=== PATIENT | male | born 1950 | race Caucasian/White ===

== ENCOUNTER 2020-10-03 11:56 | Emergency (ER) | payer MEDICARE, SELFPAY ==
--- NOTE | 2020-10-03 12:31 | ED.GENADULT ---
HPI - General Adult General Chief complaint: Upper Respiratory Infection Stated complaint: upper respiratory infection Source: patient Mode of arrival: ambulatory Limitations: no limitations History of Present Illness HPI narrative: 69 y/o male. PMH includes: GERD, HLD, DM II. Presents to [facility] today with acute complaints of MANCERA, sore throat, and nasal congestion for past 72 hours. He reports exposure to son at home, whom had tested positive for Covid earlier in week. Denies weakness, lethargy. No fever, chills. No chest pain, dyspnea, edema. No abdominal pain, N/V/D. He is without additional acute complaints upon exam. Related Data Allergies Allergy/AdvReac Type Severity Reaction Status Date / Time No Known Allergies Allergy Verified 03/30/20 11:19 Review of Systems Review of Systems: Narrative: CONSTITUTIONAL: Denies fever, chills, sweats. EYES: Denies visual changes, redness, discharge. ENT: Positive congestion, sore throat. No otalgia. CARDIOVASCULAR: Denies chest pain, palpitations, edema. RESPIRATORY: Denies dyspnea, wheezing, cough GASTROINTESTINAL: Denies abdominal pain, nausea, vomiting, diarrhea. GENITOURINARY: Denies dysuria, hematuria, abnormal discharge SKIN: Denies rash or itching. MUSCULOSKELETAL: Denies acute back pain, joint pain, or myalgia. NEUROLOGIC: Denies numbness, or focal weakness. PSYCHIATRIC: Denies anxiety or depression. All systems reviewed & are unremarkable except as noted in HPI and below PMFSH Past Medical History Medical History Type 2 diabetes, controlled, with neuropathy Vitamin B12 deficiency (non anemic) Vitamin D deficiency, unspecified Family History Family History Father Family history of diabetes mellitus in first degree relative Other Diabetes mellitus Social History Social History Smoking status: Never smoker Second hand tobacco smoke exposure: No Alcohol intake: never Gender identity (if verbalized by the patient): Male Comments At time of signature, I agree with nursing past medical, surgical, social and family history. There is no relevant family history pertinent to the presenting complaint. Exam Narrative: Exam Narrative: GENERAL: This is a well-nourished, well-developed patient, in no apparent distress. HEAD: normocephalic, atraumatic. EYES: PERRL. Sclera clear/white. Vision is grossly intact. EARS: External ears normal, auditory canals clear and without drainage, TMs normal without perforation. Hearing grossly intact. NOSE: External nose normal. PND. THROAT: Mucous membranes moist. Posterior pharynx is erythematous, with a very small amount of exudate. No airway swelling or obstruction. NECK: Neck supple, non-tender without lymphadenopathy, masses or thyromegaly. CARDIOVASCULAR: Regular rate and rhythm without murmurs, gallops, or rubs. RESPIRATORY: Clear to auscultation. Breath sounds equal bilaterally. No wheezes, rales, or rhonchi. GASTROINTESTINAL: Abdomen soft, non-tender, nondistended. Bowel sounds are active. No hepato-splenomegaly, or palpable masses. No guarding. SKIN: warm, intact with no suspicious lesions or rash, good texture and turgor. NEURO: Alert, without acute neuro deficits. Course Course Emergency Course: -69 y/o male. PMH includes: GERD, HLD, DM II. Presents to [facility] today with acute complaints of MANCERA, sore throat, and nasal congestion for past 72 hours. He reports exposure to son at home, whom had tested positive for Covid earlier in week. Denies weakness, lethargy. No fever, chills. No chest pain, dyspnea, edema. No abdominal pain, N/V/D. -Covid 19, Influenza, and Strep swab. Proceed accordingly. Pt agrees. Vital Signs Vital signs: Vital Signs Temperature 36.9 C 10/03/20 12:36 Pulse Rate 91 10/03/20 12:36
[2020-10-03 12:36] VITALS: BP 110/74; PULSE 91; RESP 20; TEMP 36.9; O2SAT 97
== END 2020-10-03 12:50 | disposition home or self-care (01) ==
PROVIDERS: Emergency Provider Nurse Practitioner Adult Health; PCP Internal Medicine
DX: U07.1 COVID-19 (principal); K21.9 Gastro-esophageal reflux disease without esophagitis; E78.5 Hyperlipidemia, unspecified; E11.9 Type 2 diabetes mellitus without complications; E53.8 Deficiency of other specified B group vitamins; E55.9 Vitamin D deficiency, unspecified
CPT/HCPCS: 87081; 87426; 87804; 87880; 99213; C9803; G0463

== ENCOUNTER 2021-02-09 14:13 | Outpatient (CLI) | payer MEDICARE, SELFPAY ==
--- NOTE | ~2021-02-09 | MR_ITS ---
EXAMINATION: MR lumbar spine wo con DATE: 02/09/2021 15:33 INDICATION: Neuropathy. Chronic low back pain. Bilateral sciatica. TECHNIQUE: Magnetic resonance imaging (MRI) of the lumbar spine was performed without intravenous con trast. Sequences included sagittal T2-weighted FSE, sagittal T2-weighted FS FSE, sagittal T1-weighted FSE, and axial T2-weighted FSE. COMPARISON: Lumbar spine MRI 11/11/2015 FINDINGS: There is 11 degrees levoscoliosis of lumbar spine. There is mild chronic anterior wedging o f T12 and L1 vertebral bodies. There is 3 mm retrolisthesis of L1 on L2. There is moderately decrease d disc height at L1-L2 and L4-L5 and severely decreased disc height at L2-L3, L3-L4, and L5-S1. The d istal spinal cord signal intensity is normal. The conus medullaris is at L1-L2. The following disc le vels are specifically discussed: L1-L2: The disc is bulging and has an annular fissure. There is severe right and mild left facet join t osteoarthritis. There is mild bilateral neural foraminal stenosis. There is mild central canal sten osis. L2-L3: The disc is bulging and has an annular fissure. There is severe bilateral facet joint osteoart hritis. There is mild bilateral neural foraminal stenosis. There is mild central canal stenosis. L3-L4: The disc is bulging. There is severe bilateral facet joint osteoarthritis. There is mild bilat eral neural foraminal stenosis. There is mild central canal stenosis. L4-L5: The disc is bulging. There is severe bilateral facet joint osteoarthritis. There is mild bilat eral neural foraminal stenosis. There is mild central canal stenosis. L5-S1: The disc is bulging. There is moderate severe left facet joint osteoarthritis. There is modera te right and mild left neural foraminal stenosis. There is mild central canal stenosis. IMPRESSION: 1. Severe lumbar spondylosis, stable from 11/11/2015. 2. Lumbar levoscoliosis. Reviewed, dictated and finalized at location [facility].
== END 2021-02-09 14:14 | disposition home or self-care (01) ==
PROVIDERS: PCP Physician Assistant; Visit Provider Physician Assistant
DX: G62.9 Polyneuropathy, unspecified (principal); M54.41 Lumbago with sciatica, right side; M54.42 Lumbago with sciatica, left side; M47.896 Other spondylosis, lumbar region
CPT/HCPCS: 72148

== ENCOUNTER 2021-09-05 10:34 | Outpatient (CLI) | payer MEDICARE, SELFPAY ==
[2021-09-05 11:25] LABS: CRP < 0.5 mg/dL (<1.0)
[2021-09-05 11:39] LABS: Free T4 Free Thyroxine 1.28 ng/mL (0.78-2.19)
[2021-09-05 11:41] LABS: Erythrocyte Sedimentation Rate 10 mm/hr (0-20)
[2021-09-09 05:43] LABS: Alpha 1 Globulin 0.3 g/dL (0.2-0.3); Alpha 2 Globulin 0.8 g/dL (0.5-0.9); Beta 1 Globulin 0.5 g/dL (0.4-0.6); Gamma Globulin 1.1 g/dL (0.8-1.7)
== END 2021-09-05 10:35 | disposition home or self-care (01) ==
PROVIDERS: PCP Physician Assistant; Visit Provider Psychiatry & Neurology Neurology
DX: M79.605 Pain in left leg (principal); Z51.81 Encounter for therapeutic drug level monitoring; Z79.899 Other long term (current) drug therapy; M79.671 Pain in right foot; M79.672 Pain in left foot
CPT/HCPCS: 36415; 84155; 84165; 84439; 84443; 85652; 86038; 86140; 86334

== ENCOUNTER 2021-09-13 08:28 | Outpatient (CLI) | payer MEDICARE, SELFPAY ==
--- NOTE | 2021-09-13 11:00 | NEURO_ITS ---
Impression: # Complains of numbness of feet. # Neuropathy involving lower extremities peroneal and posterior tibial nerves. # Neurogenic changes noted on needle/EMG exam. # Clinical correlation recommended. Nerve Conduction Studies Anti Sensory Summary Table Stim Site NR Peak (ms) P-T Amp (?V) Site1 Site2 Delta-P (ms) Dist (cm) Pete (m/s) Left Sup Fibular Anti Sensory (Ant Lat Mall) 14 cm 4.7 9.9 14 cm Ant Lat Mall 4.7 16.0 34 Right Sup Fibular Anti Sensory (Ant Lat Mall) 14 cm 4.4 10.3 14 cm Ant Lat Mall 4.4 16.0 36 Left Sural Anti Sensory (Lat Mall) Calf 4.4 13.2 Calf Lat Mall 4.4 16.0 36 Right Sural Anti Sensory (Lat Mall) Calf 3.6 15.5 Calf Lat Mall 3.6 16.0 44 Motor Summary Table Stim Site NR Onset (ms) O-P Amp (mV) Site1 Site2 Delta-0 (ms) Dist (cm) Pete (m/s) Left Peroneal Motor (Vastus Med) Ankle 5.7 2.1 Popit Ankle 10.9 40.0 37 Popit 16.6 1.9 Right Peroneal Motor (Vastus Med) Ankle 5.1 2.7 Popit Ankle 10.9 39.0 36 Popit 16.0 2.6 Left Tibial Motor (Abd Lynn Brev) Ankle 5.5 6.3 Knee Ankle 10.9 43.0 39 Knee 16.4 2.9 Right Tibial Motor (Abd Lynn Brev) Ankle 5.3 6.5 Knee Ankle 10.9 43.0 39 Knee 16.2 4.3 F Wave Studies NR F-Lat (ms) L-R F-Lat (ms) Left Peroneal (Mrkrs) (EDB) 59.15 3.53 Right Peroneal (Mrkrs) (EDB) 55.63 3.53 Left Tibial (Mrkrs) (Abd Hallucis) 58.61 3.22 Right Tibial (Mrkrs) (Abd Hallucis) 55.39 3.22 EMG Side Muscle Nerve Root Ins Act Fibs Amp Dur Recrt Comment Right AntTibialis Dp Br Fibular L4-5 Nml Nml Nml Nml Nml Right Gastroc Tibial S1-2 Nml Nml Nml Nml Nml Right Fibularis Long Sup Br Fibular L5-S1 Nml Nml Nml Nml Nml Right Flex Dig Long Tibial L5-S2 Nml Nml Nml Nml Nml Right Ext Dig Brev Dp Br Fibular L5, S1 Nml Nml Decr >12ms Reduced Left AntTibialis Dp Br Fibular L4-5 Nml Nml Nml Nml Nml Left Gastroc Tibial S1-2 Nml Nml Nml Nml Nml Left Fibularis Long Sup Br Fibular L5-S1 Nml Nml Nml Nml Nml Left Flex Dig Long Tibial L5-S2 Nml Nml Nml Nml Nml Left Ext Dig Brev Dp Br Fibular L5, S1 Nml Nml Decr >12ms Reduced MTDD
== END 2021-09-13 08:29 | disposition home or self-care (01) ==
PROVIDERS: PCP Physician Assistant; Visit Provider Psychiatry & Neurology Neurology
DX: G89.29 Other chronic pain (principal); M54.50 Low back pain, unspecified
CPT/HCPCS: 95886; 95910

== ENCOUNTER 2022-03-23 10:29 | Outpatient (CLI) | payer MEDICARE, SELFPAY ==
--- NOTE | ~2022-03-23 | CT_ITS ---
EXAMINATION: CT abdomen pelvis wo con DATE: 03/23/2022 10:59 INDICATION: 30 pound weight loss over past year; constipation. TECHNIQUE: Computed tomography (CT) of the abdomen and pelvis was performed without intravenous contr ast. Automated exposure control and iterative reconstruction technique were employed. Exam dose: 401 .43 mGy-cm total exam DLP. COMPARISON: 09/26/2017 CT abdomen pelvis FINDINGS: Right lower lobe calcified pulmonary granuloma. The lung bases are clear of infiltrate or c onsolidation. Normal heart size. No pericardial or pleural effusion. The liver, gallbladder, bile ducts, spleen, pancreas, pancreatic duct are unremarkable except for a s olitary pancreatic head calcification which might indicate mild chronic pancreatitis. No renal space occupying mass lesion. There is prostate enlargement. The urinary bladder is evacuated, essentially unremarkable. \ There are air fluid levels in nondilated small bowel in the right lower quadrant, likely due to mild adynamic ileus or enteritis. Normal appendix. There is a prominent amount of fecal material in the colon, consistent with clinical complaint of co nstipation. No bowel obstruction or intraperitoneal free air. There is abdominal aortic calcification, no evidence of abdominal aortic aneurysm. No intraperitoneal or retroperitoneal or pelvic mass lesion or lymphadenopathy or ascites. Small fat containing inguinal hernias. Degenerative changes of the thoracic and lumbar spine, including degenerative changes of the lumbar spine with minimal anterolisthesis at L4-5, degenerative disc disease throughout the lumbar and lumbo sacral spine, most severe at L5-S1. IMPRESSION: Prominent amount of feces in colon, consistent with constipation complaint Occasional right lower quadrant small bowel air fluid levels, which may be due to mild adynamic ileus or enteritis Prostate enlargement Reviewed, dictated and finalized at [facility]. Reviewed, dictated and finalized at location A. IMPRESSION: Prominent amount of feces in colon, consistent with constipation c omplaint Occasional right lower quadrant small bowel air fluid levels, which may be due to mild adynamic ileus or enteritis Prostate enlargement
== END 2022-03-23 10:30 | disposition home or self-care (01) ==
PROVIDERS: PCP Physician Assistant; Visit Provider Physician Assistant
DX: R63.4 Abnormal weight loss (principal); K59.00 Constipation, unspecified
CPT/HCPCS: 74176

== ENCOUNTER 2022-12-16 10:05 | Emergency (ER) | payer MEDICARE, SELFPAY ==
[2022-12-16 10:16] VITALS: BP 107/54; PULSE 91; RESP 20; TEMP 37.2; O2SAT 99
[2022-12-16 10:17] VITALS: BP 107/54; PULSE 91; RESP 20; TEMP 37.2; O2SAT 99
--- NOTE | 2022-12-16 10:36 | ED.URI ---
HPI - URI/Sore Throat General Chief Complaint: Upper Respiratory Infection Stated Complaint: Cough, Time Seen by Provider: 12/16/22 10:19 Source: patient Mode of arrival: ambulatory Limitations: no limitations History of Present Illness HPI Narrative: Patient presents today with a 3 day history of productive cough, postnasal drip, rhinorrhea. Cough is worse when lying down. Denies fever, shortness of breath. He has been taking Mucinex with some relief during the day. Denies history of asthma or COPD. History of diabetes with well controlled sugars at this time. History of seasonal allergies for which she does not currently take any medication. Related Data Home Medications Medication Instructions Recorded Confirmed dapagliflozin 10 mg tablet mg 12/16/22 12/16/22 (Farxiga) metformin 500 mg tablet 500 mg PO BID 12/16/22 12/16/22 Allergies Allergy/AdvReac Type Severity Reaction Status Date / Time No Known Allergies Allergy Verified 12/16/22 10:09 Review of Systems Review of Systems: CONSTITUTIONAL: Denies body aches, fever, chills, or sweats. EYES: Denies visual changes, redness, or discharge. ENT: Denies congestion, sore throat, or otalgia.+ rhinorrhea, postnasal drip CARDIOVASCULAR: Denies chest pain, palpitations, or edema. RESPIRATORY: Denies dyspnea.+ cough GASTROINTESTINAL: Denies abdominal pain, nausea, vomiting, or diarrhea. GENITOURINARY: Denies dysuria or hematuria. SKIN: Denies rash, itching, or wounds. MUSCULOSKELETAL: Denies back pain, joint pain, or myalgia. NEUROLOGIC: Denies headache, numbness, tingling, or weakness. PSYCH: Denies depression or anxiety. [facility] Past Medical History Medical History Type 2 diabetes, controlled, with neuropathy Vitamin B12 deficiency (non anemic) Vitamin D deficiency, unspecified Family History Family History Father Family history of diabetes mellitus in first degree relative Other Diabetes mellitus Social History Social History Smoking status: Never smoker Second hand tobacco smoke exposure: No Alcohol intake: never Gender identity (if verbalized by the patient): Male Comments At time of signature, I have reviewed and agree with nursing past medical, surgical, social and family history unless otherwise noted. Please see nursing chart for further information. There is no relevant family history pertinent to the presenting complaint Exam Narrative: GENERAL: Well-appearing, well-nourished, and in no acute distress. HEAD: Normocephalic, atraumatic. EYES: EOMI. No redness or drainage. Conjunctivae normal. ENT: Mucous membranes pink and moist. Nares clear. + rhinorrhea. TMs normal bilaterally. Throat normal with moderate amount of white postnasal drainage. Uvula midline. NECK: Normal AROM. Supple. No lymphadenopathy. CHEST: No respiratory distress. Clear to auscultation. HEART: Regular rate and rhythm. No murmur appreciated. Normal peripheral pulses. EXTREMITIES: Normal range of motion. No edema. SKIN: Warm, dry, no rash. Capillary refill normal. Normal skin turgor. NEURO: No focal deficits. Alert and oriented x3. Gait steady. PSYCH: Normal affect. No signs of depression or anxiety. Course Course Level of Care: Express Care Visit Vital Signs Vital signs: Vital Signs Temperature 98.9 F 12/16/22 10:16 Pulse Rate 91 12/16/22 10:16 Respiratory Rate 20 12/16/22 10:16 Blood Pressure 107/54 L 12/16/22 10:16 Pulse Oximetry 99 12/16/22 10:16 Oxygen Delivery Room Air 12/16/22 10:16 Temperature 98.9 F 12/16/22 10:17 Pulse Rate 91 12/16/22 10:17 Respiratory Rate 20 12/16/22 10:17 Blood Pressure 107/54 L 12/16/22 10:17 Pulse Oximetry 99 12/16/22 10:17 Oxygen Delivery Room Air 12/16/22 10:17 Reviewed MDM - URI/So
== END 2022-12-16 10:43 | disposition home or self-care (01) ==
PROVIDERS: Emergency Provider Nurse Practitioner; PCP Family Medicine
DX: J30.2 Other seasonal allergic rhinitis (principal); Z20.822 Contact with and (suspected) exposure to COVID-19; E11.40 Type 2 diabetes mellitus with diabetic neuropathy, unspecified; E55.9 Vitamin D deficiency, unspecified; E53.8 Deficiency of other specified B group vitamins
CPT/HCPCS: 87426; 99212; C9803; G0463

== ENCOUNTER 2025-04-07 09:47 | Emergency (ER) | payer MEDICARE, SELFPAY ==
--- NOTE | ~2025-04-07 | XR_ITS ---
XR lumbar spine 2-3V 04/07/2025 10:37 Indication: Status post fall. Low back pain. Procedure: 3 views lumbar spine Comparison: No prior studies for comparison. Findings: There is disc narrowing and endplate degenerative change at all lumbar levels. Vertebral betsy dy heights are maintained. Prominent bulky marginal osteophytes laterally. There is multilevel facet hypertrophy. No acute fracture, subluxation or spondylolisthesis. Sacral foramen are symmetric. There is dextrocurvature of the lumbar spine. Impression: 1: Severe lumbar spondylosis. Reviewed, dictated and finalized at location B. Impression: 1: Severe lumbar spondylosis.
--- NOTE | 2025-04-07 09:53 | ED.FALL ---
HPI - Fall General Chief Complaint: Back Pain/Injury Stated Complaint: fall Time Seen by Provider: 04/07/25 09:50 Source: patient Mode of arrival: ambulatory Limitations: no limitations History of Present Illness HPI Narrative: Patient is a 69-year-old male who presents with low back pain after tripping over the dog and landing directly on his back around 2:00 a.m.. Patient having low back pain all the way across with spasm and sharp stabbing pain. Denies pain radiating anywhere. Denies any numbness, tingling or weakness to lower extremities. Denies any loss of bowel or bladder. Has taken ibuprofen Related Data Home Medications ?Medication ?Instructions ?Recorded ?Confirmed ?Last Taken ?Type dapagliflozin propanediol 10 mg mg 12/16/22 12/16/22 Unknown History tablet (Farxiga) metformin 500 mg tablet 500 mg PO BID 12/16/22 04/07/25 Unknown History Allergies Allergy/AdvReac Type Severity Reaction Status Date / Time No Known Allergies Allergy Verified 04/07/25 09:48 Review of Systems Review of Systems: All systems reviewed & are unremarkable except as noted in HPI and below Constitutional: Constitutional: Denies body ache(s), Denies chills, Denies fatigue, Denies fever(s), Denies headache(s), Denies malaise and Denies weakness Eyes: Eyes: Denies blurry vision, Denies irritation and Denies loss of vision ENT: Denies otalgia, Denies headache(s), Denies nasal discharge, Denies sinus pain and Denies sore throat Cardiovascular: Cardiovascular: Denies chest pain, Denies irregular heart rhythm and Denies dyspnea Respiratory: Respiratory: Denies dyspnea Gastrointestinal: Gastrointestinal: Denies abdominal pain, Denies melena, Denies hematochezia, Denies diarrhea, Denies nausea and Denies vomiting Musculoskeletal: Musculoskeletal: Reports back pain, Denies myalgias and Denies arthralgias Integumentary/Breasts: Skin/Breast: Denies pruritus and Denies rash Neurologic: Denies headache(s), Denies loss of vision and Denies weakness Psychiatric: Psychiatric: Reports no additional psychiatric complaints Endocrine: Endocrine: Denies fatigue PMFSH Past Medical History Medical History Type 2 diabetes, controlled, with neuropathy Vitamin B12 deficiency (non anemic) Vitamin D deficiency, unspecified Family History Family History Father Family history of diabetes mellitus in first degree relative Other Diabetes mellitus Social History Social History Smoking status: Never smoker Second hand tobacco smoke exposure: No Alcohol intake: never Gender identity (if verbalized by the patient): Male Comments At time of signature, agree with nursing past medical, surgical, social and family history. There is no relevant family history pertinent to the presenting complaint. Exam Const: General: cooperative, healthy appearing, comfortable, no acute distress and well nourished Nutritional Appearance: well nourished Orientation/consciousness: patient oriented x3 Limitations: no limitations HENMT: Head: normal to inspection, normocephalic and atraumatic Ears: hearing grossly normal bilaterally and external ears normal Face/Nose/Sinus: Normal external nose present, normal facial exam and face symmetric Face and sinus: normal facial exam and face symmetric Mouth: Yes lip normal Eyes: General: appearance normal, both eyes and all related structures Alignment and Position: alignment normal and position normal Periorbital: periorbital findings normal Eyelids: eyelids normal Pupils: Equal, round and reactive pupils present EOM: EOMs intact bilaterally Neck: Neck: normal visual inspection, full ROM and supple Chest: Chest palpation & inspection: normal inspection of the chest Resp: Effort & Inspection: normal respiratory effort and able to speak in complete sentences Auscultation: clear to auscultation bilaterally Cardio: Rate: regular rate Rhythm: regular rhythm Heart sounds: S1 normal heart sound present and S2 normal heart sound present GI: Inspection: normal to inspection Back/Spine/Pelvis: Cervical Spine: normal cervical lordosis and cervical ROM normal Thoracic/Lumbar Spine: thoracic and lumbar spine normal to inspection, pain with thoraco-lumbar ROM, paraspinal muscle tenderness, No thoracic spinal tenderness and No lumbar spinal tenderness Pelvis: no buttock tenderness and no sciatic notch tenderness Skin: General skin exam: normal color and no rashes or lesions noted Neuro: General: patient oriented x3 and moves all extremities Cranial nerves: Yes Equal, round and reactive pupils present Speech: normal speech Gait exam (Neuro): Normal gait present Extrem: General: normal to inspection, full ROM and no edema Psych: Appearance: grossly normal and well kempt Mental Status: mental status grossly normal Speech and movement: Normal speech and movement present Affect: normal affect Attitude: cooperative Thought process: Normal thought process present Course Course Emergency Course: Patient is aware of diagnosis, understands and agrees to treatment plan. Anticipatory guidance given. Patient agrees to follow-up as directed and is aware of reasons to seek care at the emergency department. Portions of this record may have been created with voice recognition software Level of Care: Express Care Visit Vital Signs Vital signs: Reviewed MDM - Fall MDM Narrative Medical decision making narrative: No risk factors or findings concerning for epidural abscess, diskitis, vertebral osteomyelitis, cord compression, cauda equina, vertebral fracture or bone malignancy, AAA, or pyelonephritis. Patient instructed to consider further imaging and workup through their primary care physician as an outpatient if symptoms persist. Pt well hydrated appearing, in no respiratory distress, hemodynamically stable. Recommend supportive care. The patient is stable at time of discharge the clinical impression was discussed and the patient was given the opportunity to ask questions, which were addressed as completely as possible given the information available at present. Anticipatory guidance and return to care precautions were discussed and the importance of primary care follow-up was stressed and encouraged. The patient voiced understanding of the plan, indications to return, and the need for follow-up. Exam findings show no acute concerns or changes Patient is appropriate for outpatient treatment and follow-up. Differential Diagnosis Differential diagnosis: Likely compression fracture and other (Lumbar strain, fall) Medical Records Attestation: I reviewed the patient's medical records. Imaging Data Radiologist's impression: XR lumbar spine 2-3V 04/07/2025 10:37 Indication: Status post fall. Low back pain. Procedure: 3 views lumbar spine Comparison: No prior studies for comparison. Findings: There is disc narrowing and endplate degenerative change at all lumbar levels. Vertebral body heights are maintained. Prominent bulky marginal osteophytes laterally. There is multilevel facet hypertrophy. No acute fracture, subluxation or spondylolisthesis. Sacral foramen are symmetric. There is dextrocurvature of the lumbar spine. Impression: 1: Severe lumbar spondylosis. Discharge Plan Discharge Clinical Impression: Strain of lumbar region, Fall Patient Disposition: Home Condition: Stable Instructions: Fall Prevention for Older Adults (ED), Low Back Strain (ED) Additional Instructions: Take steroids per package instructions, take muscle relaxers every 8 hours as needed for muscle spasm. do not drive or make any important decisions while on this medication for it can make you drowsy Exercise:Combine aerobic exercise, like walking or swimming, with specific exercises to keep the muscles in your back and abdomen strong and flexible.bed rest is not recommended. Proper Lifting:Be sure to lift heavy items with your legs, not your back. Do not bend over to pick something up. Keep your back straight and bend at your knees. Weight:Maintain a healthy weight. Being overweight puts added stress on your lower back. Avoid Smoking:Both the smoke and the nicotine cause your spine to age faster than normal. Proper Posture:Good posture is important for avoiding future problems. A therapist can teach you how to safely stand, sit, and lift. Use warm moist heat or ice to help with pain. Follow up with Primary provider in 2-3 days, This may become a chronic condition and they will be the one to help manage your pain and order additional testing. Follow-up with your doctor for further care and evaluation or seek ER if you develop problems with bladder/bowel function, weakness or loss of feeling in one or both of your legs. Patient Language: Divehi Prescriptions: New methocarbamol 1,000 mg tablet 1,000 mg PO QID 3 Days Qty: 12 0RF methylprednisolone [Medrol (Neil)] 4 mg tablets,dose pack See Rx Instructions .ROUTE .COMPLEX Qty: 21 0RF Rx Instructions: orally per package directions No Action metformin 500 mg tablet 500 mg PO BID dapagliflozin propanediol [Farxiga] 10 mg tablet cholecalciferol (vitamin D3) 125 mcg (5,000 unit) capsule 125 mcg PO DAILY 90 Days Qty: 90 1RF cyanocobalamin (vitamin B-12) 1,000 mcg capsule 1,000 mcg PO DAILY 90 Days Qty: 90 1RF Myrbetriq 25 mg tablet extended release 24 hr 25 mg PO DAILY 90 Days Qty: 90 1RF pantoprazole 20 mg tablet,delayed release (DR/EC) 20 mg PO QAM Qty: 90 1RF rosuvastatin 10 mg tablet 10 mg PO DAILY Qty: 90 1RF Follow-up/Referrals: Aishwarya,Calvin Lundberg MD [Primary Care Provider] - 3 Days Time of Disposition: 11:00
--- OUTSIDE RECORDS SUMMARY | 2025-04-07 09:56 | XMS_ITS | Clinical Summary ---
Author Organization [facility] Address [address] [place] [address] Care Team Providers Care Visual Coordinator Name Role Phone Calvin Neff MD Primary Care Provider [phone] Allergies No known active allergies Medications blood-glucose meter kitIndications: Type 2 diabetes mellitus without complication, without long-term current use of insulin (HCC) 1 each daily 1 each 3 02/02/2021 Active lancets miscIndications :Type 2 diabetes mellitus without complication, without long-term current use of insulin (HCC) Check twice daily. 100 each 1 02/02/2021 Active Accu-Chek Guide Glucose Meter misc 02/02/2021 Active Accu-Chek Guide test strips stripIndication s:Type 2 diabetes mellitus without complication, without long-term current use of insulin (HCC) USE DIRECTED TWICE A DAY 100 strip 1 12/20/2021 Active naproxen (ALEVE) 220 mg tabletIndicatio ns:STATES TAKES ALEVE Take 1 tablet (220 mg total) by mouth daily as needed for pain Active pantoprazole DR (PROTONIX) 20 mg EC tablet Take 1 tablet (20 mg total) by mouth daily 90 tablet 3 08/25/2024 Active rosuvastatin (CRESTOR) 10 mg tablet Take 1 tablet (10 mg total) by mouth daily 90 tablet 3 08/25/2024 Active vit C,U-Wc-ploed-felix tein-zeaxan 250-90-40-1 mg capsule Take by mouth Active tamsulosin (FLOMAX) 0.4 mg extended release capsule Take 1 capsule (0.4 mg total) by mouth 2 (two) times a day 180 capsule 12/15/2024 Active metFORMIN (GLUCOPHAGE) 500 mg tablet TAKE 2 TABLETS EVERY MORNING AND 1 TABLET EVERY EVENING 270 tablet 02/25/2025 Active Active Problems Problem Noted Date Diagnosed Date Diabetic neuropathy, type II diabetes mellitus 0 11/02/2022 Essential hypertension 11/02/2022 Refused pneumococcal vaccination 05/11/2022 Anterolisthesis of lumbosacral spine 03/27/2022 Assessment & Plan (03/27/2022 5:47 PM CDT): We reviewed recent imaging. Will refer to neurosurgery to discuss further evaluation and treatment. BMI 24.0-24.9, adult 03/27/2022 Renal insufficiency 02/27/2022 Assessment & Plan (02/27/2022 4:21 PM CDT): Repeat cmp to reevaluate Type 2 diabetes mellitus wit hout complication, without long-term current use of insulin 01/27/2021 Assessment & Plan (05/11/2022 11:08 AM CDT): Patient advised goal glucose fasting 80-120. They were reminded to contact the office if having difficulty keeping sugar in goal ranges. They were advised to not skip meals and maintain a heart healthy diet (cut back on processed foods, red meat, fried foods). They were reminded to exercise 4x/week for 30min each session. Assessment & Plan (03/27/2022 5:48 PM CDT): We discussed that the xigduo could be effecting his constipation. Will discontinue the xigduo and start on metformin er. We will also increase his januvia from 50mg every day to 100mg every day. He was reminded goal fasting sugar 80-120. He will call us over the coming week with his glucose log as his medications may need to be adjusted. Assessment & Plan (02/27/2022 4:22 PM CDT): Patient advised goal glucose fasting 80-120. They were reminded to contact the office if having difficulty keeping sugar in goal ranges. They were advised to not skip meals and maintain a heart healthy diet (cut back on processed foods, red meat, fried foods). They were reminded to exercise 4x/week for 30min each session. Fasting labs entered, will notify patient of results as available Assessment & Plan (09/29/2021 6:18 PM COFFEE ATTENDANT): We reviewed recent labs Advised increasing januvcruz, advised goal fasting sugar 80-120 Assessment & Plan (05/30/2021 4:54 PM CDT): We reviewed up to date algorithm, will add rustam to his xigduo. He was advised to monitor sugar with goal 80-120 fasting. He was advised to cut back on snacks and carbs. He will let us know results of home monitoring over the coming weeks so further medication management can occur. Assessment & Plan (01/27/2021 8:45 PM CDT): Will evaluate further on labs Mixed hyperlipidemia 01/27/2021 Assessment & Plan (09/29/2021 6:18 PM COFFEE ATTENDANT): Stable, continue meds same at this time Assessment & Plan (01/27/2021 8:45 PM CDT): Fasting labs entered, will notify patient of results as available Gastroesophageal reflux disease without esophagi tis 01/27/2021 Assessment & Plan (05/11/2022 11:09 AM CDT): Continue protonix the same at this time Will refer to gi to discuss further evaluation and treatment Assessment & Plan (03/27/2022 5:47 PM CDT): We reviewed ct abd/pelvis. Advised gi referral - will attempt for another location due to weight time. Assessment & Plan (09/29/2021 6:19 PM COFFEE ATTENDANT): Stable on current medication, refill as needed Assessment & Plan (01/27/2021 8:45 PM CDT): Will refer to gi Chronic bilateral low back pain without sciatica 12/29/2015 Assessment & Plan (06/07/2021 11:28 AM CDT): Patient has chronic low back pain with evidence of diffuse lumbar spondylosis by neuroimaging. He currently is using anti-inflammatories with some temporizing relief. 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 Cruz to discuss egd/cscope Advised adding daily metamucil to morning regimen. Assessment & Plan (03/27/2022 5:47 PM CDT): Continue with daily stool softener. We reviewed ct abd/pelvis. Advised gi referral - will attempt for another location due to weight time. Assessment & Plan (02/27/2022 4:21 PM CDT): Continue with care per gi Will evaluate further with ct abd/pelvis Weight loss, unintentional 02/27/2022 0 11/05/2023 Assessment & Plan (02/27/2022 4:22 PM CDT): Discussed that bmi is in healthy range, however given weight loss will evaluate further with ct abd/pelvis. Advised continued follow up with urology regarding urinary frequency symptoms. Annual physical exam 09/29/2021 022 Glucosuria 05/30/2021 11/05/2023 Assessment & Plan (05/30/2021 4:54 PM CDT): We reviewed up to date algorithm, will add januvia to his xigduo. He was advised to monitor sugar with goal 80-120 fasting. He was advised to cut back on snacks and carbs. He will let us know results of home monitoring over the coming weeks so further medication management can occur. BMI 25.0-25.9,adult 01/27/2021 03/27/20 Assessment & Plan (05/30/2021 1:25 PM CDT): Weight/BMI is in healthy range. Continue healthy lifestyle to maintain. Assessment & Plan (01/27/2021 1:52 PM CDT): Weight/BMI is in healthy range. Continue healthy lifestyle to maintain. Encounter to establish care 01/27/2021 02/27/2022 Neuropathy 01/27/2021 11/02/2022 Assessment & Plan (09/29/2021 6:20 PM COFFEE ATTENDANT): We reviewed recent labs as ordered by neurology Will attempt to retrieve emg of extremities from [place] to discuss further Assessment & Plan (06/07/2021 11:27 AM CDT): Patient has bilateral stocking distribution pain and numbness suspect for diabetic peripheral neuropathy. Examination is suggestive neuropathy as well. I will obtain EMG/NCS assessment [facility] in addition to lab work looking for medically addressable causes of clinical neuropathy beyond known diabetes. He will follow-up in neurology clinic thereafter. Assessment & Plan (01/27/2021 8:44 PM CDT): Will refer to neuro for further evaluation and treatment Benign prostatic hyperplasia with urinary frequency 01/27/2021 11/02/2022 Assessment & Plan (03/27/2022 5:47 PM CDT): Continue working with urology - has pending cystoscopy planned Assessment & Plan (01/27/2021 8:45 PM CDT): Will order psa Will refer to urology Colon cancer screening 01/27/202105/01 Assessment & Plan (01/27/2021 8:45 PM CDT): Will refer to gi Encounters Date Type Department Care Team Description 02/19/2025 ACO Quality [facility] Care [address] [address] Manda Galeana 02/19/[address] [address] Manda Galeana Chart Review (error) 02/05/2025 Telephone [facility] at [address] [place] [phone] Calvin Neff MD Test Results; Call Back 01/27/2025 1:30 PM CDT Office Visit [facility] at [address] [phone] Calvin Neff MD Frequent urination (Primary Dx); Type 2 diabetes mellitus without complication, without long-term current use of insulin (HCC); Essential hypertension; Prostate cancer screening 01/27/2025 Telephone [facility] at [address] [place] [phone] Calvin Neff MD Medical Question/Miscellaneo us from Last 3 Months Immunizations Immunization Administration Dates Next Due COVID-19 mRNA ([employer]) 0.3 m L (30 mcg) vaccine (12 years and up) 07/01/2024 Influenza Virus Vaccine Trivalent Mdv 07/01/2024 Influenza, Quad, Adjuvantate d, Intramuscular 06/26/2021 Influenza, Quadrivalent, Hig h Dose, Preservative Free, Intrr 05/23/2020 Influenza, Trivalent, High D ose, Split, Preservative Free, Intramuscular 05/31/2019,06/17/2018,06/18/2017 Influenza, Unspecified 06/18/2023,06/08/2022, Pfizer SARS-CoV-2 Monovalent Vaccination (12+ Yrs) PURPLE 06/08/2022,06/26/2021,11/28/2020,11/07 Pneumococcal Polysaccharide PPV23 06/17/2018 ZOSTER LIVE 01/18/2012 Surgical History Surgery Date Site/Laterality Comments EPIDURAL INJECTION LUMBOSACRAL 05/29/2016 N/A EPIDURAL INJECTION LUMBOSACRAL 04/12/2016 N/A EPIDURAL INJECTION LUMBOSACRAL 03/31/2016 N/A ELBOW SURGERY Left HERNIA REPAIR periumbilical EYE SURGERY Bilateral cataracts and lens ORAL SURGERY COLONOSCOPY MANDIBLE FRACTURE SURGERY 45 years ago approx 1970's surgery patient denies any hardware and has full ROM of jaw states Medical History Medical History Date Comments Diabetes mellitus (HCC) History of COVID-19 10/03/2020 no hospitali zation Spondylolisthesis of lumbosa cral region Hyperlipidemia BPH (benign prostatic hyperplasia) w/ urinary frequency (patient states up to 3-4 times nightly) GERD (gastroesophageal reflux disease) B12 deficiency Vitamin D deficiency Neuropathy evaluated by Dr. Jiménez at [facility] 2017, multiple EMGs legs Delayed emergence from gener al anesthesia slow to wake up after anesth esia Seasonal allergies Type 2 diabetes mellitus (HCC) Lower back pain noted in chart l umbar disc issues see h/o injection in past Dental bridge present lower fron t Constipation states hard to g o at times Family History Medical History Relation Name Comments No Known Problems Father Heart disease Mother Relation Name Status Comments Brother Alive Father Mother Sister Alive Social History Tobacco Use Types Packs/Day Years Used Date Smoking Tobacco: Former Cigars Q uit: 2000 Smokeless Tobacco: Never Tobacco Cessation:Counseling Given: Not Answered AUDIT-C Answer Date Recorded Q1: How often do you have a drink containing alcohol? Monthly or less 11/05/2023 Q2: How many drinks containi ng alcohol do you have on a typical day when you are drinking? Patient does not drink Q3: How often do you have si x or more drinks on one occasion? Never 11/05/2023 PHQ-2 Answer Date Recorded PHQ-2 Total Score (If total score is 3 or more points, staff should administer the PHQ-9) 0 05/07/2024 Sex and Gender Information Value Date Recorded Sex Assigned at Not on file Legal Sex Male 7:49 PM COFFEE ATTENDANT Gender Identity Not on file Sexual Orientation Not on file Obstetrics History Last Filed Vital Signs Vital Sign Reading Time Taken Comments Blood Pressure 98/60 01/27/2025 1:16 PM CDT Pulse 95 01/27/2025 1:16 PM CDT Temperature 37.1 C (98.7 F) 01/27/2025 1:16 PM CDT Respiratory Rate 18 05/02/2023 11:26 AM CDT Oxygen Saturation 94% 01/27/2025 1:16 PM CDT Inhaled Oxygen Concentration - - Weight 78.2 kg (172 lb 4.8 oz) 01/27/2025 1:16 P M CDT Height 182.9 cm (6') 01/27/2025 1:16 PM CDT Body Mass Index 23.37 01/27/2025 1:16 PM CDT Plan of Treatment Health Maintenance Due Date Last Done Comments Hepatitis C Screening 1950 DTaP/Tdap/Td Vaccine (1 - Tdap) 1960 Hepatitis B Screening 11/16/1967 Zoster Vaccine (2 of 3) 03/14/2012 01/18/2012 Pneumococcal vaccine 65+ (2 of 2 - PCV) 06/17/2019 06/17/2018 Covid-19 Vaccine (2023-2 5 season) 2024 07/01/2024, 06/08/2022, 06/07/2022, Additional history exists Albumin Creatinine Ratio, Urine 04/22/2025 , 03/29/2023 Depression Screening 05/07/2025 05/07/2024, 11/05/2023, 05/02/2023, Additional history exists Fall Risk Assessment 05/07/2025 05/07/2024, 11/05/2023, 05/02/2023, Additional history exists Well Visit 65+ 05/07/2025 05/07/2024, 04/11, 09/29/2021 Influenza Vaccine (#1) 2025 , 06/18/2023, 06/08/2022, Additional history exists Hemoglobin A1C 07/30/2025 01/27/2025, 07/12, 04/22/2024, Additional history exists Foot Exam 11/13/2025 11/13/2024 Lipid Panel 01/29/2026 01/29/2025, 08/1 11/2023, 10/30/2023, Additional history exists eGFR 01/29/2026 01/29/2025, 07/12, 04/22/2024, Additional history exists Colon Cancer Screening-Colonoscopy 04/15/2026 04/15/2021, 04/15/2021, 04/15/2021 Dilated Eye Exam 12/10/2026 12/10/2024, , 03/26/2023, Additional history exists Abdominal Aortic Aneurysm (A AA) Screen Completed 03/23/2022 Medical Devices Implanted Type Area Car Escort Device Identifier Shelf Expiration Date Model / Serial / Lot [employer] Urolift Implant Urological [id number] - [id number] Implanted:Qty: 1 on 06/01/2022 by Macario Rod MD at [facility] [place] N/A: Urethra [employer] [id number] 08/16/2023 [id number] / / [id number] [employer] Urolift Implant Urological [id number] - [id number] Implanted:Qty: 1 on 06/01/2022 by Macario Rod MD at [facility] N/A: Urethra [employer] [id number] / / [id number] [employer] Urolift Implant Urological [id number] - [id number] Implanted:Qty: 1 on 06/01/2022 by Macario Rod MD at [facility] N/A: Urethra [employer] [id number] / / [id number] [employer] Urolift Implant Urological [id number] - [id number] Implanted:Qty: 1 on 06/01/2022 by Macario Rod MD at [facility] N/A: Urethra [employer] [id number] / / [id number] Procedures Procedure Name Priority Date/Time Associated Diagnosis Comments PSA SCREEN Routine 01/29/2025 7:44 AM CDT Prostate cancer screening LIPID PANEL Routine 01/29/2025 7:44 AM CDT Type 2 diabetes mellitus without complication, without long-term current use of insulin (HCC) COMPREHENSIVE METABOLIC PANEL Routine 01/29/2025 7:44 AM CDT Type 2 diabetes mellitus without complication, without long-term current use of insulin (HCC) CBC WITH AUTO DIFFERENTIAL Routine 01/29/2025 7:44 AM CDT Type 2 diabetes mellitus without complication, without long-term current use of insulin (HCC) POCT HEMOGLOBIN A1C Routine 01/27/2025 1 :44 PM CDT Frequent urination Type 2 diabetes mellitus without complication, without long-term current use of insulin (HCC) POCT URINALYIS TEST Routine 01/27/2025 1 :33 PM CDT Frequent urination DIABETIC EYE EXAM Routine 12/10/2024 9:5 7 AM CDT ALBUMIN CREATININE RATIO, URINE Routine 04/22/2024 8:[address] ABDOMEN PELVIS WO CONTRAST Schedule Routine, Read Routine (OP Routine) 03/23/2022 Weight loss, unintentional Constipation, unspecified constipation type HM COLONOSCOPY Routine 04/15/2021 from Last 3 Months or Most Recently Relevant to Health Maintenance Results * PSA screen (01/29/2025 7:44 AM CDT) PSA 0.68 < OR = 4.00 ng/mL [email or web address] Comment: The total PSA value from this assay system is standardized against the WHO standard. The test result will be approximately 20% lower when compared to the equimolar-standardized total PSA (Kandis Karen). Comparison of serial PSA results should be interpreted with this fact in mind. This test was performed using the Siemens chemiluminescent method. Values obtained from different assay methods cannot be used interchangeably. PSA levels, regardless of value, should not be interpreted as absolute evidence of the presence or absence of disease. Blood 01/29/2025 7:44 AM CDT 01/29/2025 7:44 AM CDT Narrative [facility] - 01/30/2025 3:07 AM CDT FASTING:YES FASTING: YES us Calvin Neff MD LAB BLOOD ORDERABLES Final Re sult [facility] [address] [place] [address] * CBC with auto differential (01/29/2025 7:44 AM CDT) [facility] WBC 5.7 3.8 - 10.8 Thousand/u L [facility] RBC, POC 4.54 4.20 - 5.80 Million/uL [facility] Hgb 13.5 13.2 - 17.1 g/dL [facility] Hct 41.9 38.5 - 50.0 % [facility] MCV 92.3 80.0 - 100.0 fL [facility] MCH 29.7 27.0 - 33.0 pg [facility] MCHC 32.2 32.0 - 36.0 g/dL [facility] Comment: For adults, a slight decrease in the calculated MCHC value (in the range of 30 to 32 g/dL) is most likely not clinically significant; however, it should be interpreted with caution in correlation with other red cell parameters and the patient's clinical condition. Rdw 13.1 11.0 - 15.0 % [facility] Platelets 240 140 - 400 Thousand/u L [facility] MPV 10.4 7.5 - 12.5 fL [facility] Neutrophils, abs 3,540 1,500 - 7,800 cells/uL [facility] Lymphocytes, abs 1,602 850 - 3,900 cells/uL [facility] Monocyte abs 410 200 - 950 cells/uL [facility] Eosinophils, abs 120 15 - 500 cells/uL [facility] Basophils, abs 29 0 - 200 cells/uL [facility] Neutrophils 62.1 % [facility] Lymphocyte pct 28.1 % [facility] Monocytes 7.2 % [facility] Eosinophils 2.1 % [facility] Basophils 0.5 % [facility] Blood 01/29/2025 7:44 AM CDT 01/29/2025 7:44 AM CDT Narrative [facility] - 01/30/2025 3:07 AM CDT FASTING:YES FASTING: YES us Calvin Neff MD LAB BLOOD ORDERABLES Final Re sult [facility] [address] [address] [phone] * Lipid panel (01/29/2025 7:44 AM CDT) [facility] Cholesterol 135 <200 mg/dL [facility] HDL 64 > OR = 40 mg/dL [facility] Triglycerides 71 <150 mg/dL [facility] LDL 56 mg/dL (calc) [facility] Comment: Reference range: <100 Desirable range <100 mg/dL for primary prevention; <70 mg/dL for patients with CHD or diabetic patients with > or = 2 CHD risk factors. LDL-C is now calculated using the [place] calculation, which is a validated novel method providing better accuracy than the Friedewald equation in the estimation of LDL-C. Keon SS et al. ISSAC. 2013;310(19): 5453-1297 (http://education.[employer]/faq/FZD440) Chol/HDL ratio 2.1 <5.0 (calc) [facility] Non-HDL, (LDL+VLDL) 71 <130 mg/dL (calc) [facility] Comment: For patients with diabetes plus 1 major ASCVD risk factor, treating to a non-HDL-C goal of <100 mg/dL (LDL-C of <70 mg/dL) is considered a therapeutic option. Blood 01/29/2025 7:44 AM CDT 01/29/2025 7:44 AM CDT Narrative [facility] - 01/30/2025 3:07 AM CDT FASTING:YES FASTING: YES Calvin Neff MD LAB BLOOD ORDERABLES Final Re sult [facility] [address] [address] [phone] * (ABNORMAL) Comprehensive metabolic panel (01/29/2025 7:44 AM CDT) [facility] Glucose 170(H) 65 - 99 mg/dL [facility] Comment: Fasting reference interval For someone without known diabetes, a glucose value >125 mg/dL indicates that they may have diabetes and this should be confirmed with a follow-up test. BUN 17 7 - 25 mg/dL [facility] Creatinine 1.00 0.70 - 1.28 mg/dL [facility] eGFR 78 > OR = 60 mL/min/1.7 3m2 [facility] BUN/creat ratio SEE NOTE: (calc) [facility] Comment: Not Reported: BUN and Creatinine are within reference range. Sodium 140 135 - 146 mmol/L [facility] Potassium, pl 4.3 3.5 - 5.3 mmol/L [facility] Chloride 102 98 - 110 mmol/L [facility] CO2 30 20 - 32 mmol/L [facility] Calcium 9.7 8.6 - 10.3 mg/dL [facility] Protein, sr 6.9 6.1 - 8.1 g/dL [facility] Albumin 4.4 3.6 - 5.1 g/dL [facility] GLOBULIN 2.5 1.9 - 3.7 g/dL (calc) [facility] Alb/glob ratio 1.8 1.0 - 2.5 (calc) [facility] Bilirubin, total 0.5 0.2 - 1.2 mg/dL [facility] Alk phos 65 35 - 144 U/L [facility] AST 10 10 - 35 U/L [facility] ALT (SGPT) 12 9 - 46 U/L [facility] Blood 01/29/2025 7:44 AM CDT 01/29/2025 7:44 AM CDT Narrative [facility] - 01/30/2025 3:07 AM CDT FASTING:YES FASTING: YES us Calvin Neff MD LAB BLOOD ORDERABLES Final Re sult [facility] [address] [address] [phone] * (ABNORMAL) POCT hemoglobin A1c (01/27/2025 1:44 PM CDT) Hemoglobin A1C, POC 7.8(A) 4.0 - 5.6 % Blood 01/27/2025 1:44 PM CDT Calvin Neff MD POINT OF CARE TEST ORDERABLES Final Result * (ABNORMAL) POCT URINALYIS TEST (01/27/2025 1:33 PM CDT) Color, Urine, POC Dark Yellow Clarity, ur, POC Cloudy(A) Clear Glucose, ur, POC Negative Negative Bilirubin, ur, POC Negative Negative Ketones, ur, POC Large(A) Negative Specific [place], POC 1.020 1.003 - 1.030 Blood, ur, POC Negative Negative pH, ur, POC 5.5 5.0 - 8.0 Protein, ur, POC 4+(A) Negative Urobilinogen, Urine, POC 1.0 <2 MG/DL Leukocytes, ur, POC Negative Negative Nitrite, ur, POC Negative Negative Appearance, fld Cloudy(A) Clear Urine 01/27/2025 1:33 PM CDT Calvin Neff MD POINT OF CARE TEST ORDERABLES Final Result * Diabetic Eye Exam (12/10/2024 9:57 AM CDT) Historical Provider HEALTH MAINTENANCE Final Result * Albumin Creatinine Ratio, Urine (04/22/2024 8:35 AM CDT) Creatinine, ur 141 20 - 320 mg/dL [facility] Microalbumin, ur 1.2 See Note: mg/dL [facility] Comment: Reference Range: Reference Range Not established Microalbumin/creat ratio 9 <30 mg/g creat [facility] Comment: The ADA defines abnormalities in albumin excretion as follows: Albuminuria Category Result (mg/g creatinine) Normal to Mildly increased <30 Moderately increased 30-299 Severely increased > OR = 300 The ADA recommends that at least two of three specimens collected within a 3-6 month period be abnormal before considering a patient to be within a diagnostic category. 04/22/2024 8:35 AM CDT 04/22/2024 8:35 AM CDT Narrative [facility] - 04/23/2024 11:48 AM CDT FASTING:YES FASTING: YES us Calvin Neff MD LAB URINE ORDERABLES Final Re sult [facility] [address] [place] [address] * CT Abdomen Pelvis WO Contrast (03/23/2022) Anatomical Region Laterality Modality Body N/A Computed Tomogra phy Vesna ORTEGA IMG CT PROCEDURES Final Re sult * HM COLONOSCOPY (04/15/2021) Ford Doyle DO HEALTH MAINTENANCE Final Resul t from Last 3 Months or Most Recently Relevant to Health Maintenance Insurance T MEDICARE AETNA MEDICARE AETNA MEDICARE Care Teams Visual Coordinator Relationship Specialty Start Date End Date Calvin Neff MD PCP - General Family Medicine 06/16/22
--- OUTSIDE RECORDS SUMMARY | 2025-04-07 09:56 | XMS_ITS | Referral Summary ---
Author Organization [facility] Address [address] [place] [id number] Care Team Providers Care Anti Tank Missileman Name Role Phone Calvin Neff MD Primary Care Provider [phone] Encounters Date Type Department Care Team Description 02/19/2025 ACO Quality [address] [address] Manda Galeana 02/19/[address] [address] Manda Galeana Chart Review (error) 02/05/[address] [facility] Medical [facility] Family Medicine at [address] [address] Calvin Neff MD Test Results; Call Back 01/27/2025 Telephone [facility] at [address] [address] Calvin Neff MD Medical Question/Miscellaneo us 01/27/2025 1:30 PM CDT Office Visit [facility] Family Medicine at [address] [place] [phone] Calvin Neff MD Frequent urination (Primary Dx); Type 2 diabetes mellitus without complication, without long-term current use of insulin (HCC); Essential hypertension; Prostate cancer screening from Last 3 Months Allergies No known active allergies Medications blood-glucose meter kitIndications: Type 2 diabetes mellitus without complication, without long-term current use of insulin (HCC) 1 each daily 1 each 3 02/02/2021 Active lancets miscIndications :Type 2 diabetes mellitus without complication, without long-term current use of insulin ([facility]) Check twice daily. 100 each 1 02/02/2021 [...] daily 90 tablet 3 08/25/2024 Active vit C,Y-Ic-dmztc-felix tein-zeaxan 250-90-40-1 mg capsule Take by mouth [...] available Assessment & Plan (09/29/2021 6:18 PM AIRCRAFT MECHANIC ARMAMENT): We reviewed recent labs Advised increasing januvia, advised goal fasting sugar 80-120 Assessment & [...] 01/27/2021 Assessment & Plan (09/29/2021 6:18 PM AIRCRAFT MECHANIC ARMAMENT): Stable, continue meds same at this time [...] time. Assessment & Plan (09/29/2021 6:19 PM AIRCRAFT MECHANIC ARMAMENT): Stable on current medication, refill as needed [...] 11/02/2022 Assessment & Plan (09/29/2021 6:20 PM AIRCRAFT MECHANIC ARMAMENT): We reviewed recent labs as ordered by neurology Will attempt to retrieve emg of extremities from [place] to discuss further Assessment & Plan (06/07/2021 11:27 AM CDT): Patient has bilateral stocking distribution pain and numbness suspect for diabetic peripheral neuropathy. Examination is suggestive neuropathy as well. I will obtain EMG/NCS assessment [facility] in addition to lab work looking for [...] 8:45 PM CDT): Will refer to gi Immunizations Immunization Administration Dates Next Due COVID-19 mRNA (Magnetic) 0.3 m L (30 mcg) vaccine (12 years and up) 07/01/2024 Influenza Virus Vaccine Trivalent Mdv 07/01/2024 Influenza, Quad, Adjuvantate d, Intramuscular 06/26/2021 Influenza, Quadrivalent, Hig h Dose, Preservative Free, Intrr 05/23/2020 Influenza, Trivalent, High D ose, Split, Preservative Free, Intramuscular 05/31/2019,06/17/2018,06/18/2017 Influenza, Unspecified 06/18/2023,06/08/2022, [employer] SARS-CoV-2 Monovalent Vaccination (12+ Yrs) PURPLE 06/08/2022,06/26/2021,11/28/2020,11/07 Pneumococcal Polysaccharide PPV23 06/17/2018 ZOSTER LIVE 01/18/2012 Social History Tobacco Use Types Packs/Day Years Used Date Smoking Tobacco: Former Cigars Q uit: 1999 Smokeless Tobacco: Never Tobacco Cessation:Counseling Given: Not [...] on file Legal Sex Male 7:49 PM AIRCRAFT MECHANIC ARMAMENT Gender Identity Not on file Sexual Orientation Not on file Last Filed Vital Signs Vital Sign Reading [...] 01/27/2025 1:16 PM CDT Plan of Treatment Not on file Medical Devices Implanted Type Area Ship Painter Helper Device Identifier Shelf Expiration Date Model / Serial / Lot [employer] Urolift Implant Urological [id number] - [id number] Implanted:Qty: 1 on 06/01/2022 by Macario Rod MD at [facility] N/A: Urethra [employer] [id number] 08/16/2023 JZ515-1 / / [id number] [employer] Urolift Implant Urological Gw805-6 - [id number] Implanted:Qty: 1 on 06/01/2022 by Macario Rod MD at [facility] N/A: Urethra [employer] XX949-3 / / [id number] [employer] Urolift Implant Urological Pn031-0 - [id number] Implanted:Qty: 1 on 06/01/2022 by Macario Rod MD at [facility] N/A: Urethra [employer] ZR693-0 / / [id number] [employer] Urolift Implant Urological Hv522-6 - [id number] Implanted:Qty: 1 on 06/01/2022 by Macario Rod MD at [facility] N/A: Urethra [employer] RF783-2 / [id number] Procedures Procedure Name Priority Date/Time Associated Diagnosis [...] * PSA screen (01/29/2025 7:44 AM CDT) Pathologist [facility] PSA 0.68 < OR = 4.00 ng/mL [facility] Comment: The total PSA value from this assay system is standardized against the WHO standard. The test result will be approximately 20% lower when compared to the equimolar-standardized total PSA ([place]is [place]). Comparison of serial PSA results should be [...] BLOOD ORDERABLES Final Re sult [facility] [address] [place] [address] * CBC with auto differential (01/29/2025 7:44 AM CDT) [facility] WBC 5.7 3.8 - 10.8 Thousand/u L [...] BLOOD ORDERABLES Final Re sult [facility] [address] [place] [address] * Lipid panel (01/29/2025 7:44 AM CDT) [facility] Cholesterol 135 <200 mg/dL [facility] [...] equation in the estimation of LDL-C. Keon CHACON et al. ISSAC. 2013;310(19): 6714-3966 (http://education.[employer].Sik[employer]es Risk Management/faq/ZDL285) Chol/HDL ratio 2.1 <5.0 (calc) [facility] [...] LAB BLOOD ORDERABLES Final Re sult [facility] [address] [place] [address] * (ABNORMAL) Comprehensive metabolic panel (01/29/2025 7:44 AM CDT) Pathologist [facility] Glucose 170(H) 65 - 99 mg/dL [facility] [...] [facility] BUN/creat ratio SEE NOTE: 6 - 22 (calc) [facility] Comment: Not Reported: [...] LAB BLOOD ORDERABLES Final Re sult [facility] [address] [place] [address] * (ABNORMAL) POCT hemoglobin A1c (01/27/2025 1:44 PM CDT) Pathologist [facility] Hemoglobin A1C, POC 7.8(A) 4.0 - 5.6 % Blood 01/27/2025 1:44 PM CDT Calvin Neff MD POINT OF CARE TEST ORDERABLES Final Result * (ABNORMAL) POCT URINALYIS TEST (01/27/2025 1:33 PM CDT) Color, Urine, POC Dark Yellow Clarity, ur, POC Cloudy(A) Clear Glucose, ur, POC Negative Negative Bilirubin, ur, POC Negative Negative Ketones, ur, POC Large(A) Negative Specific [place], POC 1.020 1.003 - 1.030 Blood, ur, POC Negative Negative pH, ur, POC 5.5 5.0 - 8.0 Protein, ur, POC 4+(A) Negative Urobilinogen, Urine, POC 1.0 <2 MG/DL Leukocytes, ur, POC Negative Negative Nitrite, ur, POC Negative Negative Appearance, fld Cloudy(A) Clear Urine 01/27/2025 1:33 PM CDT Result [facility] Calvin Neff MD POINT OF CARE TEST ORDERABLES Final Result * Diabetic Eye Exam (12/10/2024 9:57 AM CDT) Result [facility] Historical Provider HEALTH MAINTENANCE Final Result * [...] 04/23/2024 11:48 AM CDT FASTING:YES FASTING: YES Result [facility] Calvin Neff MD LAB URINE ORDERABLES Final Re sult [facility] [address] [address] [place] [address] * CT Abdomen Pelvis WO Contrast (03/23/2022) Anatomical Region Laterality Modality Body N/A Computed Tomogra phy Result [facility] Vesna ORTEGA IMG CT PROCEDURES Final Re sult * HM COLONOSCOPY (04/15/2021) Ford Doyle DO HEALTH MAINTENANCE Final Resul t from Last 3 Months or Most Recently Relevant to Health Maintenance [id number] [place] [id number] AET MEDICARE [address] [place] [id number] AET MEDICARE Care Teams Anti Tank Missileman Relationship Specialty Start Date End Date Calvin Neff MD PCP - General Family Medicine 06/16/22
--- OUTSIDE RECORDS SUMMARY | 2025-04-07 09:56 | XMS_ITS | Clinical Summary ---
Author Organization [facility] Address [address] [place] [address] Care Team Providers Care Gun Welder Name Role Phone Vesna Acevedo PA-C Primary Care Provider [phone] Allergies No known active allergies Medications rosuvastatin 10 MG tablet Take 10 mg by mouth nightly at bedtime. Active pantoprazole EC 20 MG tablet Take 20 mg by mouth daily. Active tamsulosin 0.4 MG Cap Take 0.4 mg by mouth daily. Active Dapagliflozin-m etFORMIN HCl ER (XIGDUO XR) 5-1000 MG TABLET SR 24 HR Acti ve Social History Tobacco Use Types Packs/Day Years Used Date Smoking Tobacco: Never Smokeless Tobacco: Never Alcohol Use Standard Drinks/Week Comments Yes 0 (1 standard drink = 0.6 oz pur e alcohol) occasional Sex and Gender Information Value Date Recorded Sex Assigned at Not on file Legal Sex Male 8:23 PM CDT Gender Identity Not on file Sexual Orientation Not on file Last Filed Vital Signs Vital Sign Reading Time Taken Comments Blood Pressure 122/69 04/15/2021 3:15 PM CDT Pulse 72 04/15/2021 3:15 PM CDT Temperature 36.3 C (97.4 F) 04/15/2021 2:55 PM CDT Respiratory Rate 17 04/15/2021 3:15 PM CDT Oxygen Saturation 94% 04/15/2021 3:15 PM CDT Inhaled Oxygen Concentration - - Weight 83.9 kg (185 lb) 04/07/2021 1:49 PM CDT Height 185.4 cm (6' 1) 04/07/2021 1:49 PM CDT Body Mass Index 24.41 04/07/2021 1:49 PM CDT Plan of Treatment Health Maintenance Due Date Last Done Comments Hepatitis C 11/16/1968 DTaP, Tdap and Td Vaccines ( 1 - Tdap) 1968 Pneumococcal Vaccine: 50+ Years (1 of 1 - PCV) 11/16/1999 Zoster Vaccines (2 of 3) 03/14/2012 01/18/2012 Annual Medicare Wellness Visit 2014 COVID-19 Vaccine (3 - 2023-2 5 season) 2024 11/28/2020, 11/07/2020 RSV Immunization or 60+ Years (1 - 1-dose 75+ series) 2024 Colorectal Cancer Screening Colonoscopy (10 Years) 04/15/2031 04/15/2021 Meningococcal B Vaccine Aged Out No l onger eligible based on patient's age to complete this topic Meningococcal Vaccine Aged Out No mil kaylee eligible based on patient's age to complete this topic RSV Immunizations Under 20 Months Aged Out No longer eligible b ased on patient's age to complete this topic Insurance [employer] Care Teams Gun Welder Relationship Specialty Start Date End Date Vesna Acevedo PA-C [address] [facility] [address] [place] [address] PCP - General PHYSICIAN JOINT MAKER MACHINE 04/15/21
--- OUTSIDE RECORDS SUMMARY | 2025-04-07 09:58 | XMS_ITS | Continuity of Care Document ---
Author Organization [facility] Address [address] [place] [address] Phone Care Team Providers Care Fish Technologist Name Role Phone Alex Joshi Unavailable Unavailable Procedures Procedure Date Eye Exam Established Pt Ophthalmoscopy, Subsequent Eye Exam Established Pt Ophthalmoscopy, Subsequent Eye Exam Established Pt Injection Eye Drug Kenalog/Triamcinolone Acetonide Inj Ophthalmoscopy, Subsequent Optic Nerve Topography Eye Exam Established Pt Ophthalmoscopy, Subsequent Eye Exam Established Pt Ophthalmoscopy, Subsequent Post-op Follow-up Visit Ophthalmoscopy, Subsequent Office Consultation Ophthalmoscopy Advance Directives Directive Yes / No Effective Date File Name No Information Encounters Encounter Description Practice Location Reason(s) For Visit Diagnoses Date Provider Providers Copied on Encounter [facility], [address] [place] [address] [address], [place], [place], [id number], [place] tel:[phone] [facility] No Information 9 Adi Johnson. [address] [place] [address], [address], [place]. tel:[phone] Referring Provider: Alex Rubi, [address] [place], [address]. tel:[phone] [facility], [address] [place] [address] [address], [place], [place], [id number], [place] tel:[phone] [facility] No Information Mar-2 3-200 9 Adi Johnson. [address] [place], [address], [place]. tel: [phone] [facility], [address], [place], [place], [id number], [place] tel:[phone] [facility] No Information Mar-0 2-200 9 Adi Johnson. [address] [place], [address], [place]. tel: [phone] Referring Provider: Alex Rubi, [address] [place], [place], [facility]. tel:[phone] [facility], [address], [place], [place], [id number], [place] tel:[phone] [facility] No Information Feb-0 2-200 9 Adi Johnson. [address] [place], [address], [place]. tel: [phone] [facility], [address], [place], [place], [id number], [place] tel:[phone] [facility] No Information Nando-2 6-200 9 Adi Johnson. [address] [place], [address], [place]. tel: [phone] [facility], [address], [place], [place], [id number], [place] tel:[phone] [facility] No Information Sep- 9-200 9 Adi Johnson. [address] [place], [address], [place]. tel: [phone] [facility], [address], [place], [place], [id number], [place] tel:[phone] [facility] No Information 5-200 9 Adi Johnson. [address] [place], [address], [place]. tel:[phone] Referring Provider: Yung Portillo, [address] [place], [address]. tel:[phone] Family History Family Member Type Diagnosis Age At Onset No Information Payers Payer name Insurance type Covered libertarian ID Authoriza tion(s) No Information Social History Type Description Quantity Date Captured Comments Sex Male Smoking Status No Information Chief Complaint And Reason For Visit No Information Reason For Referral Reason For Referral No Information History Of Present Illness Encounter Date Complaint History Of Prese nt Illness No Information Functional Status Date Functional Assessmen t No Information Instructions Date Instruction Additional Infor mation No Information Assessments Type Assessment Date No Information Patient Care Teams Name Effective Dates (start - stop) Status Members No Information
[2025-04-07 09:59] VITALS: BP 118/73; PULSE 80; RESP 16; TEMP 36.8; O2SAT 99
== END 2025-04-07 11:01 | disposition home or self-care (01) ==
PROVIDERS: Emergency Provider Nurse Practitioner Family; PCP Family Medicine
DX: S39.012A Strain of muscle, fascia and tendon of lower back, initial encounter (principal); W01.0XXA Fall on same level from slipping, tripping and stumbling without subsequent striking against object, initial encounter; E11.42 Type 2 diabetes mellitus with diabetic polyneuropathy; E55.9 Vitamin D deficiency, unspecified; E53.8 Deficiency of other specified B group vitamins
CPT/HCPCS: 72100; 99213; G0463